=== PATIENT | female | born 2000 | race Caucasian/White ===

== ENCOUNTER 2018-11-19 14:58 | Emergency (ER) | payer MEDICAID ==
[~2018-11-19] VITALS: Ht 167.6 cm; Wt 53.2 kg
[~2018-11-19 14:58] MED LIST: ARIP2TAB37 PO; BUSP10TA10 PO; CHOL50004 PO; ESCI20TA25 PO; NEOM10DR45 OT
[2018-11-19 15:53] LABS: BASOPHILS % (AUTO) 0.6 % (0-1); EOSINOPHILS % (AUTO) 0.6 % (0-6); HEMATOCRIT 40.7 % (35.0-45.0); HEMOGLOBIN 13.2 g/dl (12.0-16.0); LYMPHOCYTES # (AUTO) 1.8 X10'3 (1.1-4.8); LYMPHOCYTES % (AUTO) 27.4 % (21-51); MEAN CORPUSCULAR HEMOGLOBIN 30.6 PG (27.0-31.0); MEAN CORPUSCULAR HGB CONC 32.5 g/dL (33.0-36.5); MEAN CORPUSCULAR VOLUME 94.3 FL (78-98); MEAN PLATELET VOLUME 8.9 FL (7.4-10.4); MONOCYTES # (AUTO) 0.5 X10'3 (0-0.9); MONOCYTES % (AUTO) 7.6 % (2-12); NEUTROPHILS # (AUTO) 4.3 X10'3 (1.8-7.7); NEUTROPHILS % (AUTO) 63.8 % (42-75); PLATELET COUNT 151 X10'3 (140-440); RED BLOOD COUNT 4.32 X10'6 (4.20-5.60); RED CELL DISTRIBUTION WIDTH 14.7 % (11.5-14.5); WHITE BLOOD COUNT 6.7 X10'3 (4.5-11.0)
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
[2018-11-19 16:02] LABS: ALANINE AMINOTRANSFERASE 28 U/L (12-78); ALBUMIN/GLOBULIN RATIO 1.3 (1.1-1.5); ALKALINE PHOSPHATASE 45 IU/L (20-180); ANION GAP 9 (8-16); ASPARTATE AMINO TRANSFERASE 10 U/L (10-37); BILIRUBIN,TOTAL 1.2 MG/DL (0.1-1.0); BLOOD UREA NITROGEN 11 MG/DL (7-18); BUN/CREATININE RATIO 14.3 (6.6-38.0); CHLORIDE 107 MMOL/L (99-107); CREATININE 0.77 MG/DL (0.40-0.90); GLUCOSE 79 MG/DL (70-104); POTASSIUM 3.5 MMOL/L (3.5-5.1); SODIUM 141 MMOL/L (135-145); TOTAL CARBON DIOXIDE 25.5 MMOL/L (24-32); TOTAL PROTEIN 7.2 G/DL (6.4-8.2); eGFR > 90 ML/MIN
[2018-11-19 16:13] LABS: ETHANOL < 0.010 GM/DL (0.0-0.010)
--- NOTE | 2018-11-19 16:16 | NUR ---
WATER PROVIDED, REQUESTED URINE SPECIMAN
[2018-11-19 16:36] LABS: CLARITY,URINE CLEAR (Clear); COLOR,URINE YELLOW (Yellow); GLUCOSE, URINE NEGATIVE (Neg); KETONES,URINE TRACE mg/dl (Neg); LEUKOCYTE ESTERASE ,URINE NEGATIVE (Neg); NITRITES, URINE NEGATIVE (Neg); OCCULT BLOOD,URINE NEGATIVE (Neg); PROTEIN,URINE NEGATIVE (Neg); UROBILINOGEN,URINE 0.2 E.U/dL (0.2-1.0)
[2018-11-19 16:38] LABS: UA COLLECTION TYPE CLN CATCH MIDSTREAM
[2018-11-19 16:39] LABS: URINE HCG NEGATIVE (NEG)
[2018-11-19 16:49] LABS: URINE AMPHETAMINE SCREEN NEGATIVE (Neg); URINE BARBITUATE SCREEN NEGATIVE (Neg); URINE BENZODIAZEPINES SCREEN NEGATIVE (Neg); URINE CANNABINOID SCREEN POSITIVE (Neg); URINE COCAINE SCREEN NEGATIVE (Neg); URINE METHADONE SCREEN NEGATIVE (Neg); URINE OPIATE SCREEN NEGATIVE (Neg); URINE PHENCYCLIDINE SCREEN NEGATIVE (Neg)
--- NOTE | 2018-11-19 16:57 | NUR ---
PT HAS FEMALE VISITOR
--- NOTE | 2018-11-19 18:37 | NUR ---
Patient is sitting mid fowlers in bed. She is awake and well oriented. Patient is tearful. A friend is at bedside visiting with patient. This freelance writer spoke with Thai [facility] RN. Thai advises that he has discussed discharge with this patient and she will be following up with [facility] and her provider at [facility] too.
[2018-11-19 18:55] VITALS: BP 108/60
== END 2018-11-19 19:01 | disposition home or self-care (01) ==
LOC: ER 14:59
DX: F32.9 Major depressive disorder, single episode, unspecified (principal); F12.90 Cannabis use, unspecified, uncomplicated; Z79.2 Long term (current) use of antibiotics; Z79.899 Other long term (current) drug therapy
CPT/HCPCS: 36415; 80053; 80305; 80320; 81003; 81025; 84443; 85025; 99284

== ENCOUNTER 2018-11-21 23:19 | Emergency (ER) | payer MEDICAID ==
[~2018-11-21] VITALS: Ht 167.6 cm; Wt 49.0 kg
--- NOTE | 2018-11-21 23:37 | NUR ---
[facility]. Patients discovery manager at [facility].
--- NOTE | 2018-11-21 23:50 | NUR ---
Patient is awake and well oriented. She was brought direct from triage, report from LOUANN Sanders. Patient has a normal gait. Her thought process is linear. Affect is flat. Poor eye contact. This patient complains of acute depression. Patient was evaluated at this facility a couple of nights ago and was released. Patient states her depression has gotten worse since being released, she feels like she doesn't have any coping mechanisms. The patient tells this adjusto writer operator that she is experiencing suicidal ideation, she does not have a current plan. The patient is changed into green scrubs. She is advised by this adjusto writer operator that she is in a safe place. A urine sample will be collected. Q15 minute rounding will be done for patient safety. Patients bed is in view from the nursing station.
[2018-11-22 00:22] LABS: BASOPHILS % (AUTO) 0.6 % (0-1); EOSINOPHILS # (AUTO) 0.1 X10'3 (0-0.9); EOSINOPHILS % (AUTO) 0.8 % (0-6); HEMATOCRIT 38.3 % (35.0-45.0); HEMOGLOBIN 12.9 g/dl (12.0-16.0); LYMPHOCYTES # (AUTO) 2.4 X10'3 (1.1-4.8); LYMPHOCYTES % (AUTO) 33.5 % (21-51); MEAN CORPUSCULAR HEMOGLOBIN 31.2 PG (27.0-31.0); MEAN CORPUSCULAR HGB CONC 33.5 g/dL (33.0-36.5); MONOCYTES # (AUTO) 0.5 X10'3 (0-0.9); MONOCYTES % (AUTO) 7.4 % (2-12); NEUTROPHILS # (AUTO) 4.2 X10'3 (1.8-7.7); NEUTROPHILS % (AUTO) 57.7 % (42-75); PLATELET COUNT 159 X10'3 (140-440); RED BLOOD COUNT 4.12 X10'6 (4.20-5.60); RED CELL DISTRIBUTION WIDTH 14.6 % (11.5-14.5); WHITE BLOOD COUNT 7.2 X10'3 (4.5-11.0)
--- NOTE | 2018-11-22 00:31 | NUR ---
patient says she refuses to provide urine until the tech gives her water. Water was provided to patient via [employer].
[2018-11-22 00:34] LABS: ALANINE AMINOTRANSFERASE 29 U/L (12-78); ALBUMIN 4.2 G/DL (3.4-5.0); ALBUMIN/GLOBULIN RATIO 1.2 (1.1-1.5); ALKALINE PHOSPHATASE 52 IU/L (20-180); ANION GAP 10 (8-16); ASPARTATE AMINO TRANSFERASE 13 U/L (10-37); BILIRUBIN,TOTAL 0.8 MG/DL (0.1-1.0); BLOOD UREA NITROGEN 14 MG/DL (7-18); BUN/CREATININE RATIO 18.4 (6.6-38.0); CALCIUM 9.3 MG/DL (8.5-10.1); CHLORIDE 106 MMOL/L (99-107); CREATININE 0.76 MG/DL (0.40-0.90); GLUCOSE 80 MG/DL (70-104); POTASSIUM 3.7 MMOL/L (3.5-5.1); SODIUM 144 MMOL/L (135-145); TOTAL CARBON DIOXIDE 28.3 MMOL/L (24-32); TOTAL PROTEIN 7.7 G/DL (6.4-8.2); eGFR > 90 ML/MIN
[2018-11-22 00:58] LABS: ETHANOL < 0.010 GM/DL (0.0-0.010)
--- NOTE | 2018-11-22 00:58 | NUR ---
Patient is exhibiting acute anxiety and becoming angry. Patient states "I can't fucking sleep." This field underwriter will consult with MD for orders.
[2018-11-22] MEDS ORDERED: LORazepam 1 MG tablet PO ONE (01:00)
[2018-11-22] MEDS ORDERED: diphenhydrAMINE 25mg capsule PO ONE (01:00)
[2018-11-22 01:09] LABS: URINE HCG NEGATIVE (NEG)
[2018-11-22 01:11] LABS: CLARITY,URINE CLOUDY (Clear); COLOR,URINE YELLOW (Yellow); GLUCOSE, URINE NEGATIVE (Neg); KETONES,URINE NEGATIVE (Neg); LEUKOCYTE ESTERASE ,URINE NEGATIVE (Neg); NITRITES, URINE NEGATIVE (Neg); OCCULT BLOOD,URINE NEGATIVE (Neg); PROTEIN,URINE NEGATIVE (Neg)
[2018-11-22 01:13] LABS: UA COLLECTION TYPE VOIDED
[2018-11-22 01:16] LABS: RBC,URINE 0-2 /HPF (0-2); SQUAMOUS EPITHELIAL CELL,UR MODERATE /LPF (FEW); WBC,URINE 0-4 /HPF (0-4)
[2018-11-22 01:17] LABS: AMORPHOUS URATES 4+; BACTERIA,URINE FEW /HPF (Neg)
[2018-11-22 01:18] LABS: URINE AMPHETAMINE SCREEN NEGATIVE (Neg); URINE BARBITUATE SCREEN NEGATIVE (Neg); URINE BENZODIAZEPINES SCREEN NEGATIVE (Neg); URINE CANNABINOID SCREEN POSITIVE (Neg); URINE COCAINE SCREEN NEGATIVE (Neg); URINE METHADONE SCREEN NEGATIVE (Neg); URINE OPIATE SCREEN NEGATIVE (Neg); URINE PHENCYCLIDINE SCREEN NEGATIVE (Neg)
--- NOTE | 2018-11-22 01:26 | NUR ---
PO Benadryl and Atavan have been given. Patient is calming now. She remains cooperative with staff.
[2018-11-22 05:45] VITALS: BP 106/55
--- NOTE | 2018-11-22 06:33 | NUR ---
Patient sleeping on right side. No distress observed. Continue to monitor.
--- NOTE | 2018-11-22 09:15 | NUR ---
Narinder ALMEIDA, with patient. Patient very tearful. Continue to monitor.
--- NOTE | 2018-11-22 11:39 | NUR ---
Patient sleeping with the covers over her head. No distress observed. Continue to monitor.
--- NOTE | 2018-11-22 11:39 | NUR ---
[facility] gathering info on patient.
== END 2018-11-22 13:29 ==
LOC: ER 23:19
DX: F32.9 Major depressive disorder, single episode, unspecified (principal); F12.90 Cannabis use, unspecified, uncomplicated
CPT/HCPCS: 36415; 80053; 80305; 80320; 81001; 81025; 84443; 85025; 99285; Q0163

== ENCOUNTER 2019-01-17 13:47 | Emergency (ER) | payer MEDICAID ==
[~2019-01-17] VITALS: Ht 167.6 cm; Wt 54.5 kg
--- NOTE | 2019-01-17 14:36 | NUR ---
pt resting in bed. no concerns at this time
[2019-01-17] MEDS ORDERED: TEST200V10 IM (15:36)
[2019-01-17] MEDS ORDERED: HYDR-3686 PO (15:36)
[2019-01-17] MEDS ORDERED: ESCI10TA PO (15:36)
[2019-01-17 15:37] LABS: URINE HCG NEGATIVE (NEG)
[2019-01-17 15:39] LABS: CLARITY,URINE CLEAR (Clear); COLOR,URINE YELLOW (Yellow); GLUCOSE, URINE NEGATIVE (Neg); KETONES,URINE NEGATIVE (Neg); LEUKOCYTE ESTERASE ,URINE LARGE (Neg); NITRITES, URINE NEGATIVE (Neg); OCCULT BLOOD,URINE NEGATIVE (Neg); PH,URINE 6.5 (4.8-8.0); PROTEIN,URINE NEGATIVE (Neg); UROBILINOGEN,URINE 0.2 E.U/dL (0.2-1.0)
[2019-01-17 15:41] LABS: BASOPHILS % (AUTO) 0.4 % (0-1); EOSINOPHILS % (AUTO) 0.5 % (0-6); HEMATOCRIT 40.8 % (35.0-45.0); HEMOGLOBIN 13.9 g/dl (12.0-16.0); LYMPHOCYTES # (AUTO) 1.7 X10'3 (1.1-4.8); LYMPHOCYTES % (AUTO) 27.9 % (21-51); MEAN CORPUSCULAR HEMOGLOBIN 32.8 PG (27.0-31.0); MEAN CORPUSCULAR HGB CONC 34.1 g/dL (33.0-36.5); MEAN CORPUSCULAR VOLUME 96.1 FL (78-98); MEAN PLATELET VOLUME 8.7 FL (7.4-10.4); MONOCYTES # (AUTO) 0.6 X10'3 (0-0.9); MONOCYTES % (AUTO) 9.7 % (2-12); NEUTROPHILS # (AUTO) 3.8 X10'3 (1.8-7.7); NEUTROPHILS % (AUTO) 61.5 % (42-75); PLATELET COUNT 157 X10'3 (140-440); RED BLOOD COUNT 4.25 X10'6 (4.20-5.60); RED CELL DISTRIBUTION WIDTH 15.4 % (11.5-14.5); WHITE BLOOD COUNT 6.2 X10'3 (4.5-11.0)
[2019-01-17 15:44] LABS: UA COLLECTION TYPE CLN CATCH MIDSTREAM
[2019-01-17 15:49] LABS: URINE AMPHETAMINE SCREEN NEGATIVE (Neg); URINE BARBITUATE SCREEN NEGATIVE (Neg); URINE BENZODIAZEPINES SCREEN NEGATIVE (Neg); URINE CANNABINOID SCREEN POSITIVE (Neg); URINE COCAINE SCREEN NEGATIVE (Neg); URINE METHADONE SCREEN NEGATIVE (Neg); URINE OPIATE SCREEN NEGATIVE (Neg); URINE PHENCYCLIDINE SCREEN NEGATIVE (Neg)
[2019-01-17] MEDS ORDERED: citalopram 20mg tablet PO ONE (15:50)
[2019-01-17] MEDS ORDERED: TESTOSTERONE CYPIONATE 200 MG/ML IM SCH (15:50)
[2019-01-17 15:56] LABS: ALANINE AMINOTRANSFERASE 32 U/L (12-78); ALBUMIN 3.8 G/DL (3.4-5.0); ALBUMIN/GLOBULIN RATIO 1.2 (1.1-1.5); ALKALINE PHOSPHATASE 43 IU/L (20-180); ANION GAP 6 (8-16); ASPARTATE AMINO TRANSFERASE 14 U/L (10-37); BILIRUBIN,TOTAL 0.8 MG/DL (0.1-1.0); BLOOD UREA NITROGEN 8 MG/DL (7-18); BUN/CREATININE RATIO 10.4 (6.6-38.0); CALCIUM 9.4 MG/DL (8.5-10.1); CHLORIDE 107 MMOL/L (99-107); CREATININE 0.77 MG/DL (0.40-0.90); GLUCOSE 85 MG/DL (70-104); POTASSIUM 4.6 MMOL/L (3.5-5.1); SODIUM 144 MMOL/L (135-145); TOTAL PROTEIN 7.1 G/DL (6.4-8.2); eGFR > 90 ML/MIN
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
[2019-01-17 16:05] LABS: BACTERIA,URINE 1+ /HPF (Neg); RBC,URINE 0-2 /HPF (0-2)
[2019-01-17 16:05] LABS: ETHANOL < 0.010 GM/DL (0.0-0.010)
[2019-01-17 16:06] LABS: RENAL CELLS, URINE FEW /HPF
[2019-01-17 16:07] LABS: SQUAMOUS EPITHELIAL CELL,UR MANY /LPF (FEW)
[2019-01-17 16:10] LABS: TRANSITIONAL EPI CELLS,URINE FEW /HPF
--- NOTE | 2019-01-17 19:01 | NUR ---
One to one with the patient to assess severity of depressive symtpoms and self harm risk. The patient was cooperative with the assessment but she appeared apathetic and her affect was very flat. Her eye contact was minimal. Her speech was soft and monotone. She stated she felt very depressed. Her energy is low. She admits to being suicidal but without a plan. She stated that she felt she had no reason to live. She denies prior suicide attempts. She denies A/V hallucinations.
--- NOTE | 2019-01-17 19:59 | NUR ---
Report to Gage Mcdaniels
[2019-01-17] MEDS ORDERED: hydrOXYzine 25 MG tablet PO SCH (21:00)
--- NOTE | 2019-01-17 21:33 | NUR ---
The patient appears to be asleep
--- NOTE | 2019-01-18 00:34 | NUR ---
The patient appearst to be asleep
--- NOTE | 2019-01-18 04:02 | NUR ---
The patient appears to be asleep
--- NOTE | 2019-01-18 04:49 | NUR ---
The patient appears to be asleep
--- NOTE | 2019-01-18 07:15 | NUR ---
Pt resting in bed on right side with no observed distress. He reports being thirsty and requests some juice. This request was accomodated. Will continue to monitor.
[2019-01-18] MEDS ORDERED: citalopram 20mg tablet PO SCH (08:00)
--- NOTE | 2019-01-18 08:29 | NUR ---
Spoke to Anshul at [facility] office and she reports that this Pt was accepted to [facility] in [place] by [facility]. Scheduled time for pick up and delivery driver is 1000.
--- NOTE | 2019-01-18 09:39 | NUR ---
Pt is resting in bed peacefully at this time. No observed distress. Will continue ot monitor.
[2019-01-18 10:17] VITALS: BP 113/60
[2019-01-24] MEDS ORDERED: TESTOSTERONE CYPIONATE 200 MG/ML IM SCH (08:00)
== END 2019-01-18 10:31 ==
LOC: ER 13:48
DX: F32.9 Major depressive disorder, single episode, unspecified (principal); R45.851 Suicidal ideations; F12.90 Cannabis use, unspecified, uncomplicated; F17.200 Nicotine dependence, unspecified, uncomplicated; Z79.899 Other long term (current) drug therapy
CPT/HCPCS: 36415; 80053; 80305; 80320; 81001; 81025; 84443; 85025; 99285; Q0177; Z7610

== ENCOUNTER 2019-06-08 02:30 | Emergency (ER) | payer MEDICAID ==
[~2019-06-08] VITALS: Ht 167.6 cm; Wt 55.0 kg
[~2019-06-08 02:30] MED LIST changes: -ARIP2TAB37 PO; -BUSP10TA10 PO; -CHOL50004 PO; +ESCI10TA PO; -ESCI20TA25 PO; +HYDR-3686 PO; -NEOM10DR45 OT; +TEST200V10 IM
[2019-06-08 02:36] VITALS: BP 123/80
== END 2019-06-08 03:28 ==
LOC: ER 02:30
DX: F10.129 Alcohol abuse with intoxication, unspecified (principal); F32.9 Major depressive disorder, single episode, unspecified; F12.90 Cannabis use, unspecified, uncomplicated; Z79.899 Other long term (current) drug therapy; V89.2XXA Person injured in unspecified motor-vehicle accident, traffic, initial encounter; W22.11XA Striking against or struck by driver side automobile airbag, initial encounter; Y93.89 Activity, other specified; Y92.410 Unspecified street and highway as the place of occurrence of the external cause; Y99.8 Other external cause status; Y90.9 Presence of alcohol in blood, level not specified
CPT/HCPCS: 99283